=== PATIENT | female | born 1955 | race Caucasian/White ===

== ENCOUNTER 2019-01-27 11:26 | Outpatient (CLI) | payer MEDICARE ==
--- NOTE | 2019-01-27 15:16 | Diagnostic Imaging Report ---
PATIENT MR#: [id number] PATIENT PATIENT NAME: SARAH ROLLE DATE OF : 1955 REFERRING PHYSICIAN: Cathi Klein EXAM DATE: 01/27/2019 ACCESSION NUMBER: [id number] EXAM DESCRIPTION: ABD COMPLETE HISTORY: Constipation COMPARISON: No pertinent prior studies are available at this time. ABDOMINAL XRAY, 3 FRONTAL VIEW, SUPINE AND UPRIGHT: Bowel gas pattern: No evidence of obstruction. Normal, nondistended air collections within the colon. Calcifications: No findings to suggest nephrolithiasis by x-ray sensitivity. Skeleton: Intact. IMPRESSION: Normal bowel gas pattern without evidence of obstruction or significant constipation. Read by: Dr. Santiago Salazar Transcribed by: Santiago Salazar Transcribed Date: 01/27/2019 3:15:42 PM Electronically signed by: Dr. Santiago Salazar Date signed: 01/27/2019 3:15:42 PM
== END 2019-01-27 11:36 ==
LOC: RAD 11:26
PROVIDERS: ATTEND Nurse Practitioner Family
DX: K63.9 Disease of intestine, unspecified (principal)
CPT/HCPCS: 74019

== ENCOUNTER 2019-02-13 07:48 | Outpatient (CLI) | payer MEDICARE ==
[2019-02-13 10:44] LABS: BASOPHILS % 0.4 % (0.0-1.5); NEUTROPHILS # 4.1 # k/uL (1.4-7.7); SEGMENTED NEUTROPHILS % 70 % (39-79)
== END 2019-02-13 07:53 ==
LOC: LAB 07:48
PROVIDERS: ATTEND Nurse Practitioner Family
DX: D75.89 Other specified diseases of blood and blood-forming organs (principal)
CPT/HCPCS: 36415; 85025